=== PATIENT | female | born 1960 | race Caucasian/White ===

== ENCOUNTER → 2016-08-30 | Outpatient (REF) | payer MEDICARE ==
[~2016-08-30] MED LIST: ASPI81TA85 PO; LISI10TA2 PO; NAPR500T2 PO; TRAM50TA2 PO; VITA100L PO
[2016-08-30 12:27] LABS: CHOLESTEROL LEVEL 233 MG/DL (<200); FREE T4 0.96 NG/DL (0.76-1.46); TRIGLYCERIDES LEVEL 501 MG/DL (<150)
== END ==
LOC: M SFHCLERA 09:22
PROVIDERS: ATTEND Family Medicine
DX: E03.8 Other specified hypothyroidism (principal); I73.9 Peripheral vascular disease, unspecified
CPT/HCPCS: 80061; 84439; 84443; 84481; G0463

== ENCOUNTER → 2016-09-06 | Outpatient (REF) | payer MEDICARE, MEDICAID | LOC: M SFHCLERA 13:46 | PROVIDERS: ATTEND Nurse Practitioner Family | DX: T81.30XA Disruption of wound, unspecified, initial encounter (principal) | CPT/HCPCS: 87070; 87077; 87186; G0463 ==

== ENCOUNTER → 2016-10-19 | Outpatient (REF) | payer MEDICARE ==
[2016-10-19 10:15] LABS: CHOLESTEROL LEVEL 233 MG/DL (<200); FREE T4 0.95 NG/DL (0.76-1.46); TRIGLYCERIDES LEVEL 446 MG/DL (<150)
== END ==
LOC: M LAB REF 09:18
PROVIDERS: ATTEND Family Medicine
DX: E03.9 Hypothyroidism, unspecified (principal)

== ENCOUNTER → 2017-04-15 | Outpatient (CLI) | payer MEDICAID, MEDICARE ==
[~2017-04-15] MED LIST changes: +ATOR80TA59 PO; +CITA20TA4 PO; +FURO20TA2 PO; +GABA-279 PO; +LEVO100T5 PO; +LEVOTAB10 PO; +LISI-538 PO; -NAPR500T2 PO; +NAPR500T3 PO; +PROAAER10 INH; +VITA100054 PO; +VITA100T PO
== END ==
LOC: M LAB 12:37
PROVIDERS: ATTEND Family Medicine
DX: E03.8 Other specified hypothyroidism (principal)

== ENCOUNTER → 2017-04-20 | Outpatient (CLI) | payer BC, MEDICAID, MEDICARE ==
--- NOTE | 2017-04-21 08:25 | REPMRS ---
Patient History The patient states she had a clinical breast exam in 2016. Family history of ovarian cancer in sister at age 46. Took hormonal contraceptives for 10 years. Digital Mammo Screening Bilat: April 20, 2017 - Exam #: [id number] Bilateral CC and MLO view(s) were taken. Technologist: Parul Ortega Technologist Prior study comparison: July 23, 2015, digital bilateral screening mammo, performed at [facility]. 2007, digital bilateral screening mammo, performed at [facility]. FINDINGS: The breast tissue is heterogeneously dense. This may lower the sensitivity of mammography. There is a needle biopsy marker clip in the left breast. There is a moderate amount of heterogeneously dense fibroglandular tissue which is fairly symmetric. There is no interval development of dominant mass, architectural distortion, or clustered microcalcification typical of malignancy. There has been no change in the appearance of the mammogram from the prior studies. ASSESSMENT: BI-RADS/ACR category 2 mammogram. Benign finding(s). Recommendation Routine screening mammogram of both breasts in 1 year (for women over age 40). This mammogram was interpreted with the aid of an FDA-approved computer-aided dectection system. Electronically Signed By: Ge Hardin MD 04/21/17 0838
== END ==
LOC: M RAD 13:44
PROVIDERS: ATTEND Family Medicine
DX: Z12.31 Encounter for screening mammogram for malignant neoplasm of breast (principal); Z92.0 Personal history of contraception; Z80.41 Family history of malignant neoplasm of ovary

== ENCOUNTER 2017-05-24 09:48 | Outpatient (CLI) | payer MEDICARE, MEDICAID ==
[~2017-05-24] VITALS: Ht 157.5 cm; Wt 93.9 kg
[2017-05-24] MEDS ORDERED: NS 1,000 ML IV ONE (10:30)
[2017-05-24] MEDS ORDERED: PROPOFOL 200 MG/20 ML VIAL As Ordered ONE (10:49)
[2017-05-24] MEDS ORDERED: LIDOCAINE 2% INJ 100 MG/5 ML SDV (FOR ANES.) As Ordered ONE (10:49)
--- NOTE | 2017-05-24 11:10 | ROOR ---
Patient Name: Jaimee Skaggs Procedure Date: 05/24/2017 10:43 AM Date of : 1960 Age: 56 Room: [facility] Gender: Female Note Status: Finalized Procedure: Colonoscopy Indications: Screening for colorectal malignant neoplasm Providers: Elmo POPE MD Referring MD: Maryse ESTRELLA MD Requesting Provider: Medicines: Monitored Anesthesia Care Complications: No immediate complications. Procedure: Pre-Anesthesia Assessment: - The heart rate, respiratory rate, oxygen saturations, blood pressure, adequacy of pulmonary ventilation, and response to care were monitored throughout the procedure. The Colonoscope was introduced through the anus and advanced to the cecum, identified by appendiceal orifice and ileocecal valve. The colonoscopy was performed without difficulty. The patient tolerated the procedure well. The quality of the bowel preparation was adequate and fair. Findings: The perianal and digital rectal examinations were normal. (EXAM: Complete, PREP: Suboptimal) Two sessile polyps were found in the splenic flexure. The polyps were 6 to 10 mm in size. These polyps were removed with a cold snare. Resection and retrieval were complete. Area was successfully injected with 2 mL Adele ink for tattooing. Two sessile polyps were found in the rectum and transverse colon. The polyps were 4 mm in size. These polyps were removed with a cold snare. Resection and retrieval were complete. The exam was otherwise without abnormality on direct and retroflexion views. Impression: - (EXAM: Complete, PREP: Suboptimal) - Two 6 to 10 mm polyps at the splenic flexure, removed with a cold snare. Resected and retrieved. Injected. - Two 4 mm polyps in the rectum and in the transverse colon, removed with a cold snare. Resected and retrieved. - The examination was otherwise normal on direct and retroflexion views. Recommendation: - Telephone endoscopist for pathology results in 2 weeks. - Repeat colonoscopy date to be determined after pending pathology results are reviewed because the bowel preparation was suboptimal. Elmo Pope MD Elmo POPE MD 05/24/2017 11:09:51 AM This report has been signed electronically. Number of Addenda: 0 Note Initiated On: 05/24/2017 10:43 AM Estimated Blood Loss: Estimated blood loss: none.
[2017-05-24 11:31] VITALS: BP 132/80
[2017-05-24] MEDS ORDERED: mitoMYcin 0.2 MG/VIAL KIT FOR OPHTHALMIC USE (J7315 PER 0.2MG) As Ordered ONE (13:18)
== END 2017-05-24 11:40 | disposition home or self-care (01) ==
LOC: M OPP 09:48
PROVIDERS: ATTEND Internal Medicine Gastroenterology
DX: Z12.11 Encounter for screening for malignant neoplasm of colon (principal); D12.3 Benign neoplasm of transverse colon; K63.5 Polyp of colon; I10 Essential (primary) hypertension; E78.5 Hyperlipidemia, unspecified; R60.0 Localized edema; I73.9 Peripheral vascular disease, unspecified; K21.9 Gastro-esophageal reflux disease without esophagitis; E03.9 Hypothyroidism, unspecified; R12 Heartburn; M19.90 Unspecified osteoarthritis, unspecified site; G43.909 Migraine, unspecified, not intractable, without status migrainosus; M54.89 Other dorsalgia; M54.2 Cervicalgia; M79.661 Pain in right lower leg; M79.662 Pain in left lower leg; F41.9 Anxiety disorder, unspecified; F32.9 Major depressive disorder, single episode, unspecified; J44.9 Chronic obstructive pulmonary disease, unspecified; G47.30 Sleep apnea, unspecified; R06.83 Snoring; Z98.1 Arthrodesis status; Z95.1 Presence of aortocoronary bypass graft; F17.210 Nicotine dependence, cigarettes, uncomplicated; Z88.8 Allergy status to other drugs, medicaments and biological substances; Z88.0 Allergy status to penicillin; Z88.5 Allergy status to narcotic agent; Z79.82 Long term (current) use of aspirin; Z79.899 Other long term (current) drug therapy; Z80.1 Family history of malignant neoplasm of trachea, bronchus and lung; Z80.41 Family history of malignant neoplasm of ovary

== ENCOUNTER → 2017-05-26 | Outpatient (REF) | payer MEDICARE | LOC: M SFHCLERA 14:34 | PROVIDERS: ATTEND Family Medicine | DX: E53.8 Deficiency of other specified B group vitamins (principal); E03.9 Hypothyroidism, unspecified; Z53.8 Procedure and treatment not carried out for other reasons ==

== ENCOUNTER → 2017-05-30 | Outpatient (CLI) | payer MEDICARE, MEDICAID | LOC: M LAB 13:42 | PROVIDERS: ATTEND Family Medicine | DX: E53.8 Deficiency of other specified B group vitamins (principal); E03.9 Hypothyroidism, unspecified ==

== ENCOUNTER 2017-06-08 12:32 | Outpatient (RCR) | payer MEDICARE, MEDICAID | END 2017-06-14 | LOC: M PT 12:32 | PROVIDERS: ATTEND Neurological Surgery | DX: M47.896 Other spondylosis, lumbar region (principal); M51.36 Other intervertebral disc degeneration, lumbar region | CPT/HCPCS: 97110; 97162; G8978; G8979 ==

== ENCOUNTER 2017-06-22 12:33 | Outpatient (RCR) | payer MEDICARE, MEDICAID | END 2017-07-14 | LOC: M PT 12:33 | PROVIDERS: ATTEND Neurological Surgery | DX: M47.896 Other spondylosis, lumbar region (principal); M51.36 Other intervertebral disc degeneration, lumbar region ==

== ENCOUNTER → 2017-08-29 | Outpatient (REF) | payer MEDICARE | LOC: M SFHCLERA 14:55 | DX: E03.9 Hypothyroidism, unspecified (principal); J44.9 Chronic obstructive pulmonary disease, unspecified; F17.210 Nicotine dependence, cigarettes, uncomplicated | CPT/HCPCS: 84443 ==

== ENCOUNTER → 2019-01-24 | Outpatient (CLI) | payer MEDICARE, MEDICAID ==
[~2019-01-24] MED LIST changes: -CITA20TA4 PO; +CITA20TA6 PO; +CYAN100T5 PO; +GABA-1171 PO; -GABA-279 PO; +NAPR-885 PO; -NAPR500T3 PO; -VITA100T PO
--- NOTE | 2019-01-24 14:46 | REP ---
LOW DOSE LUNG SCREENING CT EXAM: Low dose lung screening CT performed in the axial plane. No suspicious nodule or opacity seen bilaterally. Tiny calcified granuloma is seen in the left upper lobe. No parenchymal infiltrates are seen. The heart is not significantly enlarged. No pleural effusion is seen. There are degenerative changes of the spine. No definite mediastinal contour abnormality is seen. IMPRESSION: Lung RADS category [address] No suspicious nodule or opacity. Recommend followup yearly screening CT of the lungs. Electronically Signed by Sav Smith MD 01/25/2019 04:16 P
== END ==
LOC: M RAD 12:40
PROVIDERS: ATTEND Internal Medicine Pulmonary Disease
DX: F17.210 Nicotine dependence, cigarettes, uncomplicated (principal)

== ENCOUNTER → 2022-01-13 | Outpatient (CLI) | payer MEDICARE, MEDICAID ==
[~2022-01-13] MED LIST changes: -ASPI81TA85 PO; +ASPI81TA86 PO; +CYAN100T4 PO; -CYAN100T5 PO; -LISI-538 PO; -LISI10TA2 PO; +LISI10TA24 PO; +LISI20TA33 PO
== END ==
LOC: M PLAIMG 09:26
PROVIDERS: ATTEND Physician Assistant Medical
DX: M54.59 Other low back pain (principal)

== ENCOUNTER → 2022-02-02 | Outpatient (CLI) | payer MEDICARE, MEDICAID | LOC: M RAD 10:19 | PROVIDERS: ATTEND Physician Assistant Medical | DX: Q61.00 Congenital renal cyst, unspecified (principal) ==

== ENCOUNTER → 2022-03-10 | Outpatient (CLI) | payer MEDICARE ==
[2022-03-10 16:30] LABS: BLOOD UREA NITROGEN 11 MG/DL (7-18); CALCIUM LEVEL 9.1 MG/DL (8.8-10.2); CARBON DIOXIDE LEVEL 29 MEQ/L (21-32); CHLORIDE LEVEL 108 MEQ/L (98-107); CREATININE FOR GFR 0.72 MG/DL (0.55-1.30); GLOMERULAR FILTRATION RATE > 60.0 (>45); GLUCOSE, FASTING 105 MG/DL (70-100); POTASSIUM SERUM 4.3 MEQ/L (3.5-5.1); SODIUM LEVEL 142 MEQ/L (136-145)
== END ==
LOC: M WUC 13:18
PROVIDERS: ATTEND Physician Assistant
DX: N28.1 Cyst of kidney, acquired (principal)

== ENCOUNTER → 2022-03-18 | Outpatient (CLI) | payer MEDICARE, OTHER ==
[~2022-03-18] MED LIST changes: +ISOVUE-370 76% 25ML SYRINGE As Ordered ONE
== END ==
LOC: M RAD 14:50
PROVIDERS: ATTEND Physician Assistant
DX: N28.1 Cyst of kidney, acquired (principal)
CPT/HCPCS: 74170; Q9967

== ENCOUNTER 2022-06-11 07:16 | Emergency (ER) | payer MEDICARE, MEDICAID ==
[~2022-06-11] VITALS: Ht 157.5 cm; Wt 86.4 kg
[~2022-06-11 07:16] MED LIST changes: -ISOVUE-370 76% 25ML SYRINGE As Ordered ONE
[2022-06-11] MEDS ORDERED: dexameTHASONE 20MG/5ML VIAL (J1100 PER 1MG) IV ONE (07:25)
[2022-06-11] MEDS: IPRATROPIUM 0.5MG/ALBUTEROL 2.5MG INH SOL UD 3ML (DUONEB) NEB PRN ×2 (07:49→08:08)
[2022-06-11 08:17] LABS: ABG BASE EXCESS -1.4 (-2.0-2.0); ABG HCO3 23.5 MEQ/L (22.0-26.0); ABG O2 SATURATION 99.3 % (95.0-99.0); ABG PARTIAL PRESSURE CO2 40.5 mmHg (35.0-45.0); ABG PARTIAL PRESSURE O2 238.6 mmHg (75.0-100.0); ABG STANDARD HCO3 23.3 MEQ/L (22.0-26.0); ABG TOTAL CO2 24.8 MEQ/L (23.0-31.0); ABG pH (ARTERIAL) 7.382 UNITS (7.350-7.450)
[2022-06-11 08:57] LABS: BASO % 0.2 % (0.0-1.0); EOS # 0.2 10^3/uL (0.0-0.5); EOS % 1.2 % (0.0-3.0); HEMATOCRIT 41.9 % (36.0-47.0); LYMPH # 4.4 10^3/uL (1.5-5.0); LYMPH % 32.2 % (24.0-44.0); MEAN CORPUSCULAR HEMOGLOBIN 26.4 pg (27.0-33.0); MONO # 0.4 10^3/uL (0.0-0.8); MONO % 2.6 % (2.0-8.0); NEUTROPHILS # 8.6 10^3/uL (1.5-8.5); NEUTROPHILS % 63.4 % (36.0-66.0); PLATELET COUNT, AUTOMATED 207 10^3/uL (150-450); RED BLOOD COUNT 4.93 10^6/uL (4.00-5.40); WHITE BLOOD COUNT 13.6 10^3/uL (4.0-10.0)
[2022-06-11 09:40] LABS: ALBUMIN 3.4 GM/DL (3.2-5.2); ALT/SGPT 20 U/L (12-78); BILIRUBIN,DIRECT < 0.1 MG/DL (0.0-0.2); BILIRUBIN,TOTAL 0.4 MG/DL (0.2-1.0); BLOOD UREA NITROGEN 7 MG/DL (7-18); CARBON DIOXIDE LEVEL 28 MEQ/L (21-32); CHLORIDE LEVEL 104 MEQ/L (98-107); CREATININE FOR GFR 0.84 MG/DL (0.55-1.30); GLOMERULAR FILTRATION RATE > 60.0 (>45); GLUCOSE, FASTING 147 MG/DL (70-100); NT-PRO BNP 46 PG/ML (<125); POTASSIUM SERUM 4.4 MEQ/L (3.5-5.1); SODIUM LEVEL 136 MEQ/L (136-145); THYROXINE (T4) 8.2 UG/DL (4.5-12.0); TOTAL PROTEIN 6.9 GM/DL (6.4-8.2)
[2022-06-11] MEDS ORDERED: ISOVUE-370 76% 100ML VIAL As Ordered ONE (09:52)
[2022-06-11] MEDS ORDERED: BREAMIS10 MC (11:00)
[2022-06-11] MEDS ORDERED: VENTAER INH (11:00)
[2022-06-11 11:20] VITALS: BP 122/78
== END 2022-06-11 11:22 | disposition home or self-care (01) ==
LOC: EDBD 07:16 → M ED 07:16
DX: U07.1 COVID-19 (principal); J44.1 Chronic obstructive pulmonary disease with (acute) exacerbation; I11.0 Hypertensive heart disease with heart failure; I50.9 Heart failure, unspecified; G47.33 Obstructive sleep apnea (adult) (pediatric); I73.9 Peripheral vascular disease, unspecified; Z95.828 Presence of other vascular implants and grafts; F17.210 Nicotine dependence, cigarettes, uncomplicated; Z79.899 Other long term (current) drug therapy; Z79.82 Long term (current) use of aspirin; Z79.890 Hormone replacement therapy; Z88.0 Allergy status to penicillin; Z88.5 Allergy status to narcotic agent
CPT/HCPCS: 36600; 71045; 71275; 80048; 80076; 82803; 83605; 83880; 84436; 84443; 84484; 85025; 87040; 87486; 87581; 87633; 87798; 93005; 93041; 94640; 94760; 96374; 99285; J1100; Q9967

== ENCOUNTER → 2023-11-23 | Outpatient (CLI) | payer MEDICARE, MEDICAID ==
[~2023-11-23] MED LIST changes: +BREAMIS10 MC; +ISOVUE-370 76% 100ML VIAL ONE; +VENTAER INH
== END ==
LOC: M PLAIMG 12:33
PROVIDERS: ATTEND Physician Assistant Medical
DX: E72.20 Disorder of urea cycle metabolism, unspecified (principal)
CPT/HCPCS: 74178; Q9967

== ENCOUNTER → 2024-02-09 | Outpatient (CLI) | payer MEDICARE, MEDICAID ==
[~2024-02-09] MED LIST changes: -ISOVUE-370 76% 100ML VIAL ONE
== END ==
LOC: M PLAIMG 10:41
PROVIDERS: ATTEND Physician Assistant
DX: S42.222D 2-part displaced fracture of surgical neck of left humerus, subsequent encounter for fracture with routine healing (principal)

== ENCOUNTER → 2024-05-03 | Outpatient (CLI) | payer MEDICARE, MEDICAID | LOC: M RAD 13:31 | PROVIDERS: ATTEND Physician Assistant Medical | DX: Z87.891 Personal history of nicotine dependence (principal) ==

== ENCOUNTER → 2024-05-09 | Outpatient (CLI) | payer MEDICARE, MEDICAID ==
[2024-05-09 13:38] LABS: HEMATOCRIT 42.5 % (36.0-47.0); HEMOGLOBIN 13.4 g/dl (12.0-15.5); MEAN CORPUSCULAR HEMOGLOBIN 26.1 pg (27.0-33.0); MEAN CORPUSCULAR HGB CONC 31.5 g/dl (32.0-36.5); MEAN CORPUSCULAR VOLUME 82.7 fl (80.0-96.0); PLATELET COUNT, AUTOMATED 215 10^3/uL (150-450); RED BLOOD COUNT 5.14 10^6/uL (4.00-5.40); WHITE BLOOD COUNT 9.3 10^3/uL (4.0-10.0)
[2024-05-09 14:05] LABS: ALBUMIN 3.5 G/DL (3.2-5.2); ALKALINE PHOSPHATASE 178 U/L (46-116); ALT/SGPT 15 U/L (7.0-40); AST/SGOT 13 U/L (<34); BILIRUBIN,TOTAL 0.7 MG/DL (0.3-1.2); BLOOD UREA NITROGEN 11 MG/DL (9-23); CALCIUM LEVEL 9.5 MG/DL (8.3-10.6); CARBON DIOXIDE LEVEL 32 MMOL/L (20-31); CHLORIDE LEVEL 108 MMOL/L (98-107); CHOLESTEROL LEVEL 299 MG/DL (<200); CHOLESTEROL RISK RATIO 7.43 (<5); CREATININE FOR GFR 0.68 MG/DL (0.55-1.30); GLOMERULAR FILTRATION RATE > 60.0 (>45); GLUCOSE, FASTING 100 MG/DL (74-106); HDL CHOLESTEROL 40.2 MG/DL (>40); LDL CHOLESTEROL 206.8 MG/DL (<100); NON-HDL-C 258.8 MG/DL; POTASSIUM SERUM 4.3 MMOL/L (3.5-5.1); SODIUM LEVEL 138 MMOL/L (136-145); TOTAL PROTEIN 6.9 G/DL (5.7-8.2); TRIGLYCERIDES LEVEL 260 MG/DL (<150)
[2024-05-09 14:07] LABS: TOTAL 25(OH) VITAMIN D 24.8 NG/ML (20.0-100.0)
[2024-05-09 14:20] LABS: HEMOGLOBIN A1c 5.2 % (4.0-6.0)
[2024-05-10 09:54] LABS: BASO % 0.3 % (0.0-1.0); EOS # 0.1 10^3/uL (0.0-0.5); EOS % 1.1 % (0.0-3.0); LYMPH # 2.3 10^3/uL (1.5-5.0); LYMPH % 25.1 % (24.0-44.0); MONO # 0.4 10^3/uL (0.0-0.8); MONO % 4.4 % (2.0-8.0); NEUTROPHILS # 6.4 10^3/uL (1.5-8.5); NEUTROPHILS % 68.9 % (36.0-66.0)
== END ==
LOC: M LAB 13:06
PROVIDERS: ATTEND Physician Assistant Medical
DX: E78.5 Hyperlipidemia, unspecified (principal)

== ENCOUNTER → 2024-06-21 | Outpatient (REF) | payer MEDICARE, MEDICAID | LOC: M SFHCDERM 17:45 | PROVIDERS: ATTEND Physician Assistant | DX: L82.1 Other seborrheic keratosis (principal) ==

== ENCOUNTER → 2024-06-27 | Outpatient (CLI) | payer MEDICARE, MEDICAID ==
[~2024-06-27] MED LIST changes: +ISOVUE-300 61% 100ML VIAL As Ordered ONE; +LIDOCAINE 1% MDV 20ML VIAL As Ordered ONE; +PROHANCE 279.3MG/ML 5ML VIAL As Ordered ONE
== END ==
LOC: M RAD 08:48
PROVIDERS: ATTEND Physician Assistant
DX: M19.011 Primary osteoarthritis, right shoulder (principal)
CPT/HCPCS: 23350; 73223; 77002; A9576; Q9967

== ENCOUNTER → 2024-11-13 | Outpatient (CLI) | payer MEDICARE, MEDICAID ==
[~2024-11-13] MED LIST changes: -ISOVUE-300 61% 100ML VIAL As Ordered ONE; -LIDOCAINE 1% MDV 20ML VIAL As Ordered ONE; -PROHANCE 279.3MG/ML 5ML VIAL As Ordered ONE
== END ==
LOC: M RAD 10:15
PROVIDERS: ATTEND Surgery
DX: I73.9 Peripheral vascular disease, unspecified (principal)

== ENCOUNTER → 2025-06-04 | Outpatient (CLI) | payer MEDICARE, MEDICAID | LOC: M RAD 10:44 | PROVIDERS: ATTEND Physician Assistant Medical | DX: Z12.2 Encounter for screening for malignant neoplasm of respiratory organs (principal); F17.210 Nicotine dependence, cigarettes, uncomplicated; I25.10 Atherosclerotic heart disease of native coronary artery without angina pectoris; J84.10 Pulmonary fibrosis, unspecified ==